=== PATIENT | male | born 1965 | race Hispanic/Latino ===

== ENCOUNTER 2025-10-22 07:36 | Emergency (ER) | payer SELFPAY ==
[2025-10-22] VITALS (9 sets, daily range): BP systolic 137–186; BP diastolic 72–96; PULSE 70–89; RESP 14–18; TEMP 36.6; O2SAT 94–98; BMI 31.1
--- NOTE | 2025-10-22 07:49 | EKG_ITS ---
[facility] [address] [place] [id number] Test Date: 2025-10-22 Pat Name: Jered Medley Department: [facility] Room: Gender: Male [employer]: BROOKE : 1965 Requested By: Order Number: [id number] Reading MD: Brody Lubin Measurements Intervals [place] Rate: 89 P: 30 IA: 136 QRS: 12 QRSD: 74 T: 17 QT: 356 QTc: 433 Interpretive Statements Normal sinus rhythm Electronically Signed On 10-22-2025 19:04:05 PST by Brody Lubin
--- NOTE | 2025-10-22 07:49 | ED_ITS ---
HPI - Abdominal Pain General Chief Complaint: Abdominal Pain Stated Complaint: lower back and Lower stomach pain 1 days Time Seen by Provider: 10/22/25 07:49 History of Present Illness HPI narrative: 60-year-old gentleman history of colon surgery over 20 years ago presents with intermittent abdominal pain radiating to the back along with decreased urine output that is been ongoing for the past few weeks. He was seen at [facility] with a GI referral but has not heard back. This morning he had abdominal pain into the back known with testicular pain and decreased urine output came in to be evaluated. Denies fever, chills, bodyaches, chest pain, cough, sore throat, rectal bleeding, hematuria, penile discharge, shortness of breath, leg pain, leg swelling. Other than what is stated 14 point review of system is negative. Related Data Previous Rx's ?Medication ?Instructions ?Recorded amoxicillin 875 mg-potassium 1 tab PO BID #14 tabs clavulanate 125 mg tablet Allergies Allergy/AdvReac Type Severity Reaction Status Date / Time No Known Drug Allergies Allergy Unverified 10/22/25 07:53 Review of Systems Review of Systems ROS Unobtainable: All systems reviewed & are unremarkable except as noted in HPI and below Patient History Social History Smoking Status: Never smoker Exam Narrative Exam Narrative: GENERAL: [60] year old patient appears stated age. Well-developed patient, in mild distress. HEAD: Atraumatic. Normocephalic. EYES: Pupils equal round and reactive. Extraocular motions intact. No scleral icterus. No injection or drainage. ENT: Nose without bleeding, purulent drainage. Throat without erythema, tonsillar hypertrophy or exudate. Airway patent. NECK: Trachea midline. Non tender CARDIOVASCULAR: Regular rate and rhythm without murmurs, gallops, or rubs. RESPIRATORY: Clear to auscultation. Breath sounds equal bilaterally. No wheezes, rales, or rhonchi. GASTROINTESTINAL: Abdomen soft, LLQ TTP no r/r/g nondistended. : Both testicles descended, scrotum normal, circumcised. EXTREMITIES: No edema or joint tenderness. BACK: Nontender without deformity or crepitance. No flank tenderness. NEURO: AOx3. SKIN: No rash or erythema of visible areas Initial Vital Signs Initial Vital Signs: Vital Signs Pulse Rate 89 10/22/25 07:41 Pulse Oximetry 96 10/22/25 07:41 Course Orders Ordered: ED Orders 10/22/25 07:49 CT abdomen pelvis w con Stat EKG-12 Lead Stat 10/22/25 07:56 Complete Blood Count AUTO DIFF Stat Comprehensive Metabolic Panel Stat Lipase Stat Ondansetron HCl (Ondansetron 4 Mg/2 Ml Inj) 4 mg IV NOW PRN PRN Reason: Nausea And Vomiting Ondansetron HCl (Ondansetron 4 Mg Odt) 4 mg PO NOW PRN PRN Reason: Nausea And Vomiting Discontinued Medications Lactated Ringer's (Lactated Ringers) 1,000 mls @ 1,000 mls/hr IV BOLUS ONE Stop: 10/22/25 08:48 Last Admin: 10/22/25 08:19 Dose: 1,000 mls/hr Documented By: GREGG Ketorolac Tromethamine (Ketorolac 30 Mg/Ml Vial) 15 mg IV NOW ONE Stop: 10/22/25 07:50 Last Admin: 10/22/25 08:17 Dose: 15 mg Documented By: GREGG Vital Signs Vital signs: Vital Signs - 8 hr 10/22/25 07:41 10/22/25 07:42 10/22/25 07:42 Temperature Pulse Rate 89 89 Respiratory Rate Blood Pressure 186/89 H Pulse Oximetry 96 96 Oxygen Delivery Method 10/22/25 07:52 10/22/25 08:00 10/22/25 08:01 Temperature 97.9 F Pulse Rate 88 80 Respiratory Rate 18 Blood Pressure 186/89 H 155/96 H Pulse Oximetry 96 97 Oxygen Delivery Method Room Air 10/22/25 08:01 10/22/25 08:39 10/22/25 08:40 Temperature Pulse Rate 82 77 Respiratory Rate Blood Pressure 137/72 Pulse Oximetry 96 96 Oxygen Delivery Method 10/22/25 08:40 Temperature Pulse Rate 78 Respiratory Rate 16 Blood Pressure Pulse Oximetry 96 Oxygen Delivery Method MDM - Abdominal Pain Lab Data 10/22/25 07:56 10/22/25 07:56 Labs: Lab Results 10/22/25 Range/Units 07:56 WBC 10.3 (4.5-11.0) X10^3/uL RBC 4.84 (4.5-5.9) X10^6/uL Hgb 15.2 (13.5-17.5) g/dL Hct 43.9 (41-53) % MCV 90.7 (80-100) fL MCH 31.4 (26-34) PG MCHC 34.6 (30-36) % RDW 13.7 (11.6-14.8) % Plt Count 258 (150-400) X10^3/uL Neut % (Auto) 74.9 (50-75) % Lymph % (Auto) 14.2 L (25-40) % [place] % (Auto) 9.2 (3-14) % Eos % (Auto) 0.9 L (2-4) % Baso % (Auto) 0.8 (0-2) % Neut # (Auto) 7700 H (3931-9311) /uL Lymph # (Auto) 1500 (1305-4077) /uL [place] # (Auto) 900 (0-900) /uL Eos # (Auto) 100 (0-450) /uL Baso # (Auto) 100 (0-100) /uL Sodium 139 (137-145) mmol/L Potassium 4.1 (3.4-5.1) mmol/L Chloride 105 (98-107) mmol/L Carbon Dioxide 24 (22-32) mmol/L BUN 19 (9-20) mg/dL Creatinine 0.93 (0.66-1.25) mg/dL Estimated GFR > 60 (>60) mL/min BUN/Creatinine Ratio 20.4 (6-22) Glucose 125 H (70-99) mg/dL Calcium 9.3 (8.4-10.2) mg/dL Total Bilirubin 0.6 (0.2-1.3) mg/dL AST 35 (17-59) IU/L ALT 31 (<50) IU/L Alkaline Phosphatase 81 (38-126) U/L Total Protein 8.0 (6.3-8.2) g/dL Albumin 4.4 (3.5-5.0) g/dL Globulin 3.6 (1.7-4.1) g/dL Albumin/Globulin Ratio 1.2 (1.0-2.8) Lipase 54 (23-300) U/L Imaging Data CT scan - abdomen/pelvis: Radiologist's Impression: [address] [address] [address] Scan Report Signed Patient: Jered Medley MR#: [id number] : 1965 Acct:[id number] Age/Sex: 60 / M Date of Service: 10/22/25 Loc: ED Accession Number: [id number] Procedure: CT abdomen pelvis w con Ordering Provider: Derian Gil D.O. PROCEDURE: CT ABDOMEN PELVIS W CON INDICATIONS: abd pain /back pain TECHNIQUE: After the administration of intravenous contrast, axial sections acquired from the lung bases to the pubic symphysis. Coronal and sagittal reformats were performed. For radiation dose reduction, the following was used: automated exposure control, adjustment of mA and/or kV according to patient size. COMPARISON: None. FINDINGS: Image quality: Diagnostic. Lower Chest: No significant findings. ABDOMEN: Liver: No solid mass. Gallbladder: No radiopaque gallstones or wall thickening. Biliary ducts: No biliary dilation. Pancreas: No ductal dilation. Spleen: Size is within normal limits. Adrenal Glands: No adrenal nodules. Kidneys and Ureters: No hydronephrosis. No solid mass. No complex renal cystic lesion which requires follow up. Stomach and Bowel: Acute diverticulitis involving the sigmoid with inflammatory change in the adjacent fat. Diffuse wall thickening in this region. No free air or free fluid or abscess cavity noted. Peritoneum: No abnormal intraperitoneal fluid. No free air. Ventral Wall: No significant ventral hernia. Abdominal Nodes: No retroperitoneal or mesenteric adenopathy by size criteria. Vessels: Aorta and inferior vena cava are normal in size. PELVIS: Pelvic Organs: Unremarkable. Bladder: No bladder wall thickening, accounting for underdistention. Pelvic Nodes: No enlarged lymph nodes. Miscellaneous: Small fat containing left inguinal hernia. Bones: No aggressive osseous abnormality. A combination of a disc protrusion and congenitally short pedicles and facet arthropathy at L4-L5 results in severe canal stenosis. IMPRESSION: 1. Acute sigmoid diverticulitis. 2. Severe multifactorial canal stenosis at L4-L5. Comment: If the patient has not had recent colonoscopy, recommend direct visualization after acute symptoms resolve to exclude underlying lesion. ECG Data Interpretation: NSR HR 89 HI 136 QRS [address]-t wave change No previous EKG to compare MDM Narrative Medical decision making narrative: All lab work, vital signs, nurse triage note, medication list, previous ER visits, and all imaging studies reviewed. CT abdomen and pelvis showed acute sigmoid diverticulitis. Severe multifactorial canal stenosis at L4-L5. Patient given Cipro Flagyl here and will be DC on both medicines. WBC 10.3 hemoglobin 15.2 platelets 250 sodium 139 potassium 4.1 chloride 105 CO2 24 BUN 19 creatinine 0.93 glucose 125 LFTs normal lipase 54. Differential diagnosis diverticulitis pancreatitis small-bowel obstruction kidney stone kidney infection. Discharge Plan Departure Prescriptions: No Action amoxicillin-pot clavulanate 875-125 mg tablet 1 tab PO BID Qty: 14 0RF
[2025-10-22 08:02] LABS: Add Manual Diff / Slide Review NO; Hematocrit 43.9 % (41-53); Hemoglobin 15.2 g/dL (13.5-17.5); Lymphocytes Absolute Auto 1500 /uL (1100-4500); Mean Corpuscular HGB Conc 34.6 % (30-36); Mean Corpuscular Hemoglobin 31.4 PG (26-34); Mean Corpuscular Volume 90.7 fL (80-100); Platelet Count 258 X10^3/uL (150-400)
[2025-10-22 08:14] LABS: Alanine Aminotransferase 31 IU/L (<50); Albumin 4.4 g/dL (3.5-5.0); Albumin Globulin Ratio 1.2 (1.0-2.8); Alkaline Phosphatase 81 U/L (38-126); Blood Urea Nitrogen 19 mg/dL (9-20); Calcium 9.3 mg/dL (8.4-10.2); Carbon Dioxide 24 mmol/L (22-32); Chloride 105 mmol/L (98-107); Estimated Glomerular Filt Rate > 60 mL/min (>60); Globulin 3.6 g/dL (1.7-4.1); Glucose 125 mg/dL (70-99); HEMOLYSIS < 15 (0-50); Lipase 54 U/L (23-300); Potassium 4.1 mmol/L (3.4-5.1); Sodium 139 mmol/L (137-145); Total Protein 8.0 g/dL (6.3-8.2)
[2025-10-22] MEDS: KETOROLAC 30 MG/ML VIAL 15 MG IV (08:17)
[2025-10-22] MEDS: LACTATED RINGERS 1,000 ML 1000 ML IV (08:19)
[2025-10-22] MEDS: CIPROFLOXACIN 250 MG TABLET 500 MG PO (09:48)
== END 2025-10-22 10:04 | disposition home or self-care (01) ==
PROVIDERS: Emergency Provider Family Medicine
DX: K57.32 Diverticulitis of large intestine without perforation or abscess without bleeding (principal); M48.061 Spinal stenosis, lumbar region without neurogenic claudication
CPT/HCPCS: 36415; 51798; 74177; 80053; 83690; 85025; 93005; 96374; 99284; J1885; J7120; Q9967